=== PATIENT | female | born 1990 | race Caucasian/White ===

== ENCOUNTER 2020-10-15 06:18 | Day surgery (SDC) | payer OTHER, SELFPAY ==
[~2020-10-15] VITALS: Ht 160 cm; Wt 49.4 kg
[2020-10-15] MEDS ORDERED: MIDAZOLAM 5 MG/5 ML VIAL ONE (07:47)
[2020-10-15] MEDS ORDERED: diphenhydrAMINE 50 MG/ML VIAL ONE (07:47)
[2020-10-15] MEDS ORDERED: fentaNYL citrate 0.05 MG/ML VIAL ONE (07:47)
[2020-10-15] MEDS ORDERED: LIDOCAINE 2% 100 MG/5 ML UJET TP ONE ×2 (07:52→08:40)
[2020-10-15] MEDS ORDERED: MIDAZOLAM 2 MG/2 ML VIAL IVP ONE (08:40)
[2020-10-15] MEDS ORDERED: diphenhydrAMINE 50 MG/ML VIAL IVP ONE (08:40)
[2020-10-15] MEDS ORDERED: fentaNYL citrate 0.05 MG/ML VIAL IVP ONE (08:40)
[2020-10-15] MEDS ORDERED: diphenhydrAMINE 50 MG/ML VIAL IVP SCH (09:00)
[2020-10-15] MEDS ORDERED: LIDOCAINE 2% 100 MG/5 ML UJET TP SCH (09:00)
[2020-10-15] MEDS ORDERED: fentaNYL citrate 0.05 MG/ML VIAL IVP SCH (09:00)
[2020-10-15] MEDS ORDERED: MIDAZOLAM 2 MG/2 ML VIAL IVP SCH (09:00)
== END 2020-10-15 09:00 | disposition home or self-care (01) ==
LOC: MDS 06:18 → MMU 06:32 → MDS 09:00
PROVIDERS: ATTEND Internal Medicine Gastroenterology
DX: R63.4 Abnormal weight loss (principal); K52.9 Noninfective gastroenteritis and colitis, unspecified; K90.0 Celiac disease; Z88.0 Allergy status to penicillin; Z88.2 Allergy status to sulfonamides; Z20.828 Contact with and (suspected) exposure to other viral communicable diseases; Z79.899 Other long term (current) drug therapy
CPT/HCPCS: 45380; 87426; J1200; J2250; J3010

== ENCOUNTER 2020-11-12 06:40 | Day surgery (SDC) | payer OTHER, SELFPAY ==
[~2020-11-12] VITALS: Ht 157.5 cm; Wt 47.6 kg
[2020-11-12 07:10] LABS: BASOPHILS % (AUTO) 0.4 % (0.0-2.0); EOSINOPHILS # (AUTO) 0.4 K/uL (0-0.4); EOSINOPHILS % (AUTO) 6.6 % (0.0-4.0); HEMATOCRIT 39.2 % (36-48); HEMOGLOBIN 13.1 g/dL (12.0-16.0); LYMPHOCYTES # (AUTO) 1.1 K/uL (2.5-16.5); LYMPHOCYTES % (AUTO) 16.6 % (20.5-51.1); MEAN CORPUSCULAR HEMOGLOBIN 31 pg (27-31); MEAN CORPUSCULAR HGB CONC 34 g/dL (33-37); MEAN CORPUSCULAR VOLUME 92.5 fL (80-94); MONOCYTES # (AUTO) 0.5 K/uL (0.8-1.0); MONOCYTES % (AUTO) 7.1 % (1.7-9.3); NEUTROPHILS # (AUTO) 4.5 K/uL (1.8-7.7); NEUTROPHILS % (AUTO) 69.3 % (42.2-75.2); PLATELET COUNT (AUTO) 243 K/uL (140-450); RED BLOOD CELL COUNT(AUTO) 4.24 MIL/uL (4.20-5.40); RED CELL DISTRIBUTION WIDTH 13.6 % (11.6-13.7); WHITE BLOOD COUNT (AUTO) 6.4 K/uL (4.8-10.8)
[2020-11-12] MEDS ORDERED: PROPOFOL 200 MG/20 ML VIAL IV ONE (07:20)
[2020-11-12 07:26] LABS: ALBUMIN 3.9 g/dL (3.4-5.0); ANION GAP 8.3 (8-16); CREATININE 0.7 mg/dL (0.6-1.3); POTASSIUM 4.3 mmol/L (3.5-5.1); TOTAL BILIRUBIN 1.3 mg/dL (0.0-1.0)
[2020-11-12] MEDS ORDERED: ONDANSETRON 4 MG/2 ML VIAL IVP PRN (08:40)
[2020-11-12] MEDS ORDERED: LACTATED RINGERS 1,000 ML IV SCH (08:40)
[2020-11-12] MEDS ORDERED: diphenhydrAMINE 50 MG/ML VIAL IVP PRN (08:40)
== END 2020-11-12 08:50 | disposition home or self-care (01) ==
LOC: MDS 06:40 → MMU 06:40 → MDS 08:50
PROVIDERS: ATTEND Internal Medicine Gastroenterology
DX: R19.7 Diarrhea, unspecified (principal); M79.7 Fibromyalgia; M06.9 Rheumatoid arthritis, unspecified; Z88.0 Allergy status to penicillin; Z88.1 Allergy status to other antibiotic agents; Z79.899 Other long term (current) drug therapy; Z90.49 Acquired absence of other specified parts of digestive tract
CPT/HCPCS: 36415; 43239; 71045; 80053; 84703; 85025; 87426; 88305; J2704; J7120